=== PATIENT | female | born 1990 | race African-American/Black ===

== ENCOUNTER 2018-07-09 23:41 | Emergency (ER) | payer OTHER ==
[2018-07-10 00:58] VITALS: BP 128/77; PULSE 72; TEMP 98.4; BMI 27.4
--- NOTE | 2018-07-10 00:59 | PDOC ---
History of Present Illness - General Chief Complaint: Rash Stated Complaint: ALLERGIC REACTION Time Seen by Provider: 07/10/18 00:28 History Source: Patient - History of Present Illness Initial Comments: 07/10/18 00:57 28 year old female cold sore to right side of upper lip c/o lip tingling, this was after URI symptoms. reports that she was on oral treatment for 1 day by urgent care and over the counter medication is not helping. denies fever/ chills , no throat pain or swelling, uri symptoms 07/10/18 01:00 Past History - Past Medical History Home Medications: Ambulatory Orders Acyclovir 5 gm TP [id number] #1 oint...g. 07/10/18 Review of Systems - Review of Systems Able to Perform ROS?: Yes Is the patient limited Spanish proficient: No Constitutional: No: Symptoms Reported, See HPI, Chills, Diaphoresis, Fever, Loss of Appetite, Malaise, Night Sweats, Weakness, Weight Stable, Unintentional Wgt. Loss, Unexplained wgt Loss, Other Integumentary: Yes: Rash. No: Symptoms Reported, See HPI, Bruising, Change in Color, Change in Hair/Nails, Dryness, Erythema, Flushing, Lesions, Lumps, Pallor , Pruritus, Sweating, Other *Physical Exam - Vital Signs 07/10/18 00:59 Last Vital Signs Temp Pulse Resp BP Pulse Ox 98.4 F 72 19 128/77 100 07/09/18 23:51 07/09/18 23:51 07/09/18 23:51 07/09/18 23:51 07/09/18 23:51 - Physical Exam General Appearance: Yes: Appropriately Dressed HEENT: negative: Tonsillar Erythema Respiratory/Chest: negative: Chest Tender, Lungs Clear, Normal Breath Sounds, Respiratory Distress, Accessory Muscle Use, Labored Respiration, Rapid RR, Decreased Breath Sounds, Paradoxal Breathing, Crackles, Rales, Rhonchi, Stridor , Wheezing, Hyperresonant, Dullness, Plerual Rub, Other Progress Note - Progress Note Progress Note: A: cold sore P: acyclovir tp pain control PCP follow up *DC/Admit/Observation/Transfer Diagnosis at time of Disposition: Sore in mouth - Discharge Dispostion Disposition: HOME Condition at time of disposition: Stable - Prescriptions Prescriptions: Acyclovir 5 gm TP Q3H6XD #1 oint...g. - Referrals Referrals: Tiffany Dainel MD [Primary Care Provider] - Call tomorrow Mohsen Sheehan MD [Staff Physician] - Call tomorrow - Patient Instructions Printed Discharge Instructions: Cold Sores Additional Instructions: apply ointment 6 times daily for 7 days follow up with a primary care physician as soon as possible. Additional Instructions: * Please call your personal physician to report your Emergency Department visit and to report your progress, if any. * If there is no improvement in symptoms in 2 days call your physician. * Return to the Emergency Department for any worsening symptoms. - Post Discharge Activity
[2018-07-10] MEDS ORDERED: LIDOCAINE HCL 2% JELLY (30 ML/TUBE) TP ONE (01:01)
[2018-07-10] MEDS ORDERED: ACETAMINOPHEN 325 MG TABLET (FP) PO ONE (01:06)
[2018-07-10] MEDS ORDERED: ACETAMINOPHEN 325 MG TABLET (FP) ONE (01:22)
[2018-07-10] MEDS ORDERED: LIDOCAINE HCL 2% JELLY (5 ML/TUBE) ONE (01:23)
== END 2018-07-10 01:41 | disposition home or self-care (01) ==
LOC: JER 23:41
DX: K13.79 Other lesions of oral mucosa (principal)
CPT/HCPCS: 99281-25